=== PATIENT | male | born 1955 | race African-American/Black ===

== ENCOUNTER 2016-10-07 13:30 | Inpatient (IN) | payer BC, MEDICAID ==
[~2016-10-07] VITALS: Ht 185.4 cm; Wt 93.1 kg
[~2016-10-07 13:30] MED LIST: ARIP10TA10; ATOM25CA3; ATOR20TA17; BENA10TA48; BUPR-34; FENO145T25; LISI-313; METF500T4; METO-53; TERB250T46
[2016-10-07] MEDS ORDERED: ONDANSETRON 4 MG INJ IV STA (14:12)
[2016-10-07] MEDS ORDERED: SOD CHLORIDE 0.9% 1,000 ML IV STA (14:12)
[2016-10-07] MEDS ORDERED: NALOXONE (0.4 MG/ML) INJ IV ONE (14:30)
[2016-10-07 14:32] LABS: BASOPHILS % 0.3 % (0.0-2.0); EOSINOPHILS # 0.1 10^3/ul (0.0-0.5); EOSINOPHILS % 0.9 % (0.0-7.0); HEMATOCRIT 40.1 % (42.0-52.0); HEMOGLOBIN 13.7 g/dl (14.0-18.0); LYMPHOCYTES # 1.1 10^3/ul (0.8-2.9); LYMPHOCYTES % 8.9 % (15.0-51.0); MEAN CORPUSCULAR HEMOGLOBIN 29.7 pg (29.0-33.0); MEAN CORPUSCULAR HGB CONC 34.2 g/dl (32.0-37.0); MEAN PLATELET VOLUME 8.7 fl (7.4-10.4); MONOCYTE # 0.8 10^3/ul (0.3-0.9); MONOCYTES % 6.2 % (0.0-11.0); NEUTROPHILS % 83.1 % (39.0-77.0); PLATELET COUNT 169 10^3/UL (140-415); RED BLOOD COUNT 4.61 10^6/ul (4.70-6.10); WHITE BLOOD COUNT 12.1 10^3/ul (4.8-10.8)
--- NOTE | 2016-10-07 14:33 | ERD ---
ER Documentation Chief Complaint Date/Time DATE: 10/07/16 TIME: 14:30 Chief Complaint BROUGHT IN VIA EMS DUE TO SYNCOPAL EPISODE HPI 61-year-old man brought in by EMS for syncopal episode shortly after using ziprasidone for the first time. Patient denies any other medication or illicit drug ingestion. The episode was witnessed he had no seizure activity, no complaints of chest pain or shortness of breath, no vomiting, no loss of bowel or bladder control. Patient denies suicidal homicidal ideation. Patient was transported here with altered mental status without other further complications ROS All systems reviewed and are negative except as per history of present illness. Medications Home Meds Reported Medications Ziprasidone* (Geodon*) 40 Mg Capsule, 40 MG PO BID, CAP 10/07/16 Divalproex Sodium* (Divalproex Sodium*) 125 Mg Tablet.dr, 125 MG PO BID, #60 TAB 10/07/16 Discontinued Reported Medications Metformin Hcl* (Metformin Hcl*) 500 Mg Tablet 06/24/10 Atorvastatin (Lipitor) 20 Mg Tablet 06/24/10 Fenofibrate Nanocrystallized* (Tricor*) 145 Mg Tablet 06/24/10 Lisinopril* (Lisinopril*) 5 Mg Tablet 06/24/10 Benazepril Hcl* (Benazepril Hcl*) 10 Mg Tablet 06/24/10 Atomoxetine Hcl (Strattera) 25 Mg Capsule 06/24/10 Aripiprazole* (Abilify*) 10 Mg Tablet 06/24/10 Bupropion Hcl* (Wellbutrin SR*) 150 Mg Tablet.sa 06/24/10 Metoprolol (Lopressor) 50 Mg Tablet 06/24/10 Terbinafine* (Lamisil*) 250 Mg Tablet 06/24/10 Allergies Allergies: Coded Allergies: No Known Drug Allergy (Verified Allergy, Mild, 10/07/16) PMhx/Soc Hypertension, psychiatric illness History of Surgery: Yes (hernia surgery) Anesthesia Reaction: No Hx Neurological Disorder: No Hx Respiratory Disorders: No Hx Cardiac Disorders: Yes (HTN, ) Hx Psychiatric Problems: Yes (BIPOLAR) Hx Miscellaneous Medical Probl: No Hx Alcohol Use: Yes Hx Substance Use: Yes Hx Tobacco Use: Yes Smoking Status: Never smoker FmHx Family History: No diabetes Physical Exam Vitals Vital Signs Date Time Temp Pulse Resp B/P Pulse Ox O2 Delivery O2 Flow Rate FiO2 10/07/16 17:17 98.0 51 18 104/71 97 10/07/16 15:45 97.9 54 18 96/64 97 10/07/16 13:45 97.9 54 18 99/53 97 Physical Exam GENERAL: Altered, able to answer simple questions and follow simple commands, lethargic but arousable, afebrile HEENT: Dry mucous membranes, pink conjunctiva, no cervical spine tenderness or step-off deformities, no goiter, no jaundice or icterus, extraocular movements intact without pain. No submandibular induration, and no pharyngeal erythema NEURO: Alert and oriented 3, lethargic, able to answer questions and follow simple commands, no focal deficits or facial asymmetry CARDIAC: Bradycardic and regular, no murmurs rubs or gallops LUNGS: Clear bilaterally no wheezing crackles or stridor ABDOMEN: Soft nontender, no guarding, no rigidity, no rebound, no psoas sign no obturator sign. Normoactive bowel sounds SKIN: Warm and dry to touch, no abrasions, contusions, or hematomas, no lacerations, no ecchymosis, no target lesions, and without ulcers EXTREMITIES: No clubbing cyanosis or edema, calves are bilaterally symmetrical, no Homans sign, no popliteal cord sign. Distal pulses equal and bilateral PSYCH: Normal affect without agitation or irritability Result Diagram: 10/07/16 1420 10/07/16 1420 Results 24 hrs Laboratory Tests Test 10/07/16 14:20 White Blood Count 12.110^3/ul Red Blood Count 4.6110^6/ul Hemoglobin 13.7g/dl Hematocrit 40.1% Mean Corpuscular Volume 87.0fl Mean Corpuscular Hemoglobin 29.7pg Mean Corpuscular Hemoglobin Concent 34.2g/dl Red Cell Distribution Width 13.0% Platelet Count 03220^3/UL Mean Platelet Volume 8.7fl Neutrophils % 83.1% Lymphocytes % 8.9% Monocytes % 6.2% Eosinophils % 0.9% Basophils % 0.3% Nucleated Red Blood Cells % 0.0/100WBC Neutrophils # 10.010^3/ul Lymphocytes # 1.110^3/ul Monocytes # 0.810^3/ul Eosinophils # 0.110^3/ul Basophils # 0.010^3/ul Nucleated Red Blood Cells # 0.010^3/ul Sodium Level 146mmol/L Potassium Level 4.0mmol/L Chloride Level 108mmol/L Carbon Dioxide Level 26mmol/L Anion Gap 16 Blood Urea Nitrogen 18mg/dl Creatinine 1.22mg/dl Glucose Level 122mg/dl Calcium Level 8.6mg/dl Total Bilirubin 0.4mg/dl Direct Bilirubin 0.00mg/dl Indirect Bilirubin 0.4mg/dl Aspartate Amino Transf (AST/SGOT) 29IU/L Alanine Aminotransferase (ALT/SGPT) 46IU/L Alkaline Phosphatase 52IU/L Troponin I < 0.012ng/ml Total Protein 6.0g/dl Albumin 3.5g/dl Globulin 2.50g/dl Albumin/Globulin Ratio 1.40 Lipase 114U/L Current Medications Medications (Trade) Dose Ordered Sig/Lorena Route PRN Reason Start Time Stop Time Status Last Admin Dose Admin Naloxone HCl (Narcan) 2 mg ONCE ONCE IV 10/07/16 14:30 10/07/16 14:31 DC 10/07/16 15:07 Ondansetron HCl 4 mg 4 mg ONCE STAT IV 10/07/16 14:12 10/07/16 14:13 DC 10/07/16 15:07 Sodium Chloride 1,000 ml @ 1,000 mls/hr Q1H STAT IV 10/07/16 14:12 10/07/16 15:11 DC 10/07/16 15:07 Sodium Chloride (NS) 1,000 ml @ 125 mls/hr Q8H IV 10/07/16 17:21 IV Flush (NS 3 ml) 3 ml PER PROTOCOL IV 10/07/16 17:30 Pantoprazole (Protonix Tab) 40 mg DAILY@06 PO 10/08/16 06:00 [facility] IV line was established patient was placed on library manager and rhythm strip revealed a sinus bradycardia at 50 bpm with upright P and T waves. Patient was afebrile. EKG performed, read by me revealed a sinus bradycardia 55 bpm, normal axis, with a right ventricular conduction delay and a QRS duration of 100 ms, no concerning ST elevations or depressions noted. One AP view of the chest performed, read by me reveals no acute infiltrates, normal mediastinum, sharp costophrenic and cardiac borders, no air under the diaphragm. Otherwise unremarkable chest x-ray. I administered 1 L normal saline intravenously, Zofran 4 mg IV, and naloxone 2 mg IV. Patient's mental status did not change with naloxone intervention. CBC was unremarkable, electrolytes normal, liver function tests normal, troponin was negative. Patient is able to answer all questions, follow all commands, and move all his extremities without difficulty, he has no facial asymmetry, and vital signs remained normal although he remains lethargic. I suspect ziprasidone overdose and will admit the patient to telemetry setting. Patient denies benzodiazepine or opioid use. Ethanol level has also been ordered results are pending I will follow-up. Patient will be admitted to telemetry setting for syncopal episode. Departure Diagnosis: Primary Impression: Syncope Syncope type: unspecified Qualified Code: R55 - Syncope, unspecified syncope type Additional Impression: Accidental medication overdose Encounter type: initial encounter Qualified Code: T50.901A - Accidental medication overdose, initial encounter MARÍA HANLEY MD Oct 07, 2016 14:33
[2016-10-07 14:56] LABS: ANION GAP 16 (8-16)
[2016-10-07] MEDS ORDERED: DIVA125T2 PO (15:00)
[2016-10-07] MEDS ORDERED: ZIPR40CA2 PO (15:08)
[2016-10-07 15:15] LABS: ALANINE AMINOTRANSFERASE 46 IU/L (13-69); ALBUMIN 3.5 g/dl (3.3-4.9); ALKALINE PHOSPHATASE 52 IU/L (42-121); ASPARTATE AMINO TRANSFERASE 29 IU/L (15-46); BILIRUBIN,INDIRECT 0.4 mg/dl (0-1.1); BILIRUBIN,TOTAL 0.4 mg/dl (0.2-1.3); BLOOD UREA NITROGEN 18 mg/dl (7-20); CALCIUM 8.6 mg/dl (8.4-10.2); CARBON DIOXIDE 26 mmol/L (21-31); CHLORIDE 108 mmol/L (97-110); CREATININE 1.22 mg/dl (0.61-1.24); GLUCOSE 122 mg/dl (70-220); SODIUM 146 mmol/L (135-144)
--- NOTE | 2016-10-07 15:15 | RADRPT ---
PROCEDURE: XR Chest. CLINICAL INDICATION: Abdominal pain. TECHNIQUE: Single frontal chest x-ray. COMPARISON: Chest radiograph 06/21/2009. FINDINGS: The lungs volumes are diminished. There are compressive changes with vascular crowding and basilar atelectasis. No pneumothorax, pleural effusion or consolidation is noted. The cardiomediastinal si lhouette is unremarkable. No acute osseous abnormality is noted. IMPRESSION: 1. Low lung volumes with compressive changes and basilar atelectasis. 2. Otherwise, no acute cardiopulmonary abnormality. RPTAT: HH .Sue Cervantes MD, Date Time Electronically viewed and signed by .Sue Cervantes MD, on 10/07/2016 15:15 .N/
[2016-10-07 16:06] LABS: TROPONIN-I < 0.012 ng/ml (0.00-0.12)
[2016-10-07 17:17] VITALS: TEMP 98
[2016-10-07] MEDS: SOD CHLORIDE 0.9% 1,000 ML IV SCH (17:21)
[2016-10-07] MEDS ORDERED: NACL 0.9% 3 ML SYG IV SCH (17:30)
--- NOTE | 2016-10-07 17:46 | HP ---
Date/Time of Note Date/Time of Note DATE: 10/07/16 TIME: 17:39 Assessment/Plan VTE Prophylaxis VTE Prophylaxis Intervention: SCD's Lines/Catheters IV Catheter Type (from Nrs): Peripheral IV Assessment/Plan Chief Complaint/Hosp Course Patient is a 61-year-old -[place] male who presents to [facility] for syncopal episode and altered mental status after taking 1 Geodon. Assessment Altered mental status Ziprasidone side effect Bradycardia Syncope Diabetes Hypertension Atrial fibrillation Bipolar disease Dyslipidemia Plan -Although the cause is very likely a reaction to patient's Geodon, cannot exclude other causes of syncope and altered mental status. Will order EEG and CT of the head to rule out neurologic cause. Echocardiogram will be ordered given patient's history of atrial fibrillation, troponins are negative, ABG, lactic acid, TSH will also be ordered -N.p.o. for now -Fluid resuscitation, patient's hypotension is likely secondary to side effects of Geodon, received 2 L in the ED, maintenance fluids after -Not atypical overdose as patient only took the recommended amount of 1 pill, however we will symptomatically manage as cautiously as possible for possible overdose symptoms. Patient has already improved significantly per nurse ED. -We will consider restarting other home meds as able David Fernandez DO Problems: HPI/ROS Admit Date/Time Admit Date/Time Hx of Present Illness Patient is a 61-year-old -[place] male with a past medical history significant for bipolar disease and multiple other comorbidities however only on one medication who presents to [facility] for syncopal episode. Upon arrival into the ED patient with a lethargic but after fluids patient is arousable easily however falls asleep very quickly. Patient is oriented 4 and can tell me exactly what happened throughout the day. Patient states that he had to change his bipolar medication to Geodon and this morning was his first dose. Patient did not overdose and took just 1 pill. Patient denies any other acute complaints at this time however states that he cannot keep his eyes open. Patient also states that although he was diagnosed with diabetes, hypertension, A. fib, dyslipidemia in the past, his other doctors took him off the medications. PMH: Bipolar, diabetes type 2, hypertension, atrial fibrillation, dyslipidemia PSH: Questionable hernia surgery Social: Positive smoker, denies drinking or drugs Meds: Only Geodon, recently taken off Abilify and Wellbutrin PMH/Family/Social Social History Smoking Status: Never smoker Exam/Review of Systems Vital Signs Vitals Vital Signs Date Time Temp Pulse Resp B/P Pulse Ox O2 Delivery O2 Flow Rate FiO2 10/07/16 17:17 98.0 51 18 104/71 97 Exam Exam Physical exam General: Patient is laying in bed and answers questions appropriately, however very sleepy Mentation: Patient is alert(when prompted) and oriented 4, Head: Normocephalic atraumatic Eyes: EOMI, pupils sluggish Neck: Supple, nontender, midline Respiratory: Clear to auscultation bilaterally Cardiovascular:bradycardia, no obvious murmurs Gastrointestinal: non-tender to palpation, bowel sounds heard. Neurological: Moves all extremities spontaneously Skin: No new skin lesions Labs Result Diagram: 10/07/16 1420 10/07/16 1420 Medications Medications Current Medications Sodium Chloride (NS) 1,000 ml @ 125 mls/hr Q8H IV ; Start 10/07/16 at 17:21 Pantoprazole (Protonix Tab) 40 mg DAILY@06 PO ; Start 10/08/16 at 06:00 DAVID FERNANDEZ Oct 07, 2016 17:46
--- NOTE | 2016-10-07 18:05 | RADRPT ---
PROCEDURE: CT Brain without. CLINICAL INDICATION: Altered mental status. TECHNIQUE: A CT of the brain was performed on multidetector high-resolution CT scanner utilizing a xial sections from the skull base through the vertex without contrast. The scan was reviewed in sof t tissue brain and high frequency resolution bone algorithm windows. Images were reviewed on a high -resolution PACS workstation. One or more the following does reduction techniques were utilized: Aut omated exposure control, adjustment of the mA/ or kV according to patient's size, or use of iterativ e reconstruction technique. The exam CTDI = 43.20 mGy and the DLP = 886.38 mGy-cm. COMPARISON: None available. FINDINGS: The ventricles and sulci are age-appropriate. There is no intracranial hemorrhage, mass effect or m idline shift. No abnormal intra-axial or extra-axial fluid collections are seen. The márquez/white mat ter differentiation is preserved. There are minimal scattered foci of hypoattenuation in the white matter, which are nonspecific in et iology but likely reflect chronic small vessel ischemic changes. The visualized paranasal sinuses ar e essentially clear. IMPRESSION: 1. No acute intracranial hemorrhage, transcortical infarction or mass effect. 2. Minimal presumed chronic small vessel ischemic changes. RPTAT: HH .Sue Cervantes MD, Date Time Electronically viewed and signed by .Sue Cervantes MD, MD on 10/07/2016 18:05 .N/
[2016-10-07] MEDS: PANTOPRAZOLE 40 MG INJ IV SCH (18:35)
[2016-10-07 18:38] LABS: AADO2 Arterial 23.7 mmHg (7.0-24.0); Allen Test ACCEPTAB; Arterial Base Excess -2.1 mmol/L (-3.0-3); Arterial COHb 1.3 % (0.0-3.0); Arterial Fraction of Oxyhgb 94.2 % (93.0-99.0); Arterial HCO3 22.2 mmol/L (22.0-26.0); Arterial MetHb 0.4 % (0.0-1.5); Arterial Total Hemglobin 15.1 g/dl (12.0-18.0); MODE ROOM AIR
[2016-10-07 19:24] LABS: SALICYLATE < 1.0 mg/dl (5.0-30.0)
[2016-10-07 20:45] VITALS: PULSE 56
[2016-10-07 20:55] VITALS: BP 149/60; RESP 18
[2016-10-07 21:54] VITALS: Ht 185.4 cm; Wt 93.1 kg
[2016-10-08] VITALS (12 sets, daily range): BP systolic 109–131; BP diastolic 66–71; PULSE 49–90; RESP 16–20
[2016-10-08] MEDS: SOD CHLORIDE 0.9% 1,000 ML IV SCH ×2 (00:09→07:59)
[2016-10-08] MEDS ORDERED: PANTOPRAZOLE (EC) 40 MG TAB PO SCH (06:00)
[2016-10-08] MEDS: PANTOPRAZOLE 40 MG INJ IV SCH (06:19)
[2016-10-08 07:30] LABS: BASOPHILS % 0.3 % (0.0-2.0); EOSINOPHILS # 0.2 10^3/ul (0.0-0.5); EOSINOPHILS % 2.8 % (0.0-7.0); HEMATOCRIT 38.9 % (42.0-52.0); HEMOGLOBIN 13.1 g/dl (14.0-18.0); LYMPHOCYTES # 1.9 10^3/ul (0.8-2.9); LYMPHOCYTES % 27.4 % (15.0-51.0); MEAN CORPUSCULAR HEMOGLOBIN 29.4 pg (29.0-33.0); MEAN CORPUSCULAR HGB CONC 33.7 g/dl (32.0-37.0); MEAN CORPUSCULAR VOLUME 87.4 fl (82.0-101.0); MEAN PLATELET VOLUME 9.3 fl (7.4-10.4); MONOCYTE # 0.5 10^3/ul (0.3-0.9); MONOCYTES % 7.5 % (0.0-11.0); NEUTROPHIL # 4.2 10^3/ul (1.6-7.5); NEUTROPHILS % 61.9 % (39.0-77.0); PLATELET COUNT 178 10^3/UL (140-415); RED BLOOD COUNT 4.45 10^6/ul (4.70-6.10); RED CELL DISTRIBUTION WIDTH 13.1 % (11.5-14.5); WHITE BLOOD COUNT 6.8 10^3/ul (4.8-10.8)
[2016-10-08 07:47] LABS: CALCIUM 8.3 mg/dl (8.4-10.2); CREATININE 0.92 mg/dl (0.61-1.24); MAGNESIUM 1.8 mg/dl (1.7-2.5); PHOSPHORUS 3.5 mg/dl (2.5-4.9); POTASSIUM 4.1 mmol/L (3.5-5.1)
[2016-10-08 07:54] LABS: CHOL/HDL RATIO 4.7 RATIO
--- NOTE | 2016-10-08 09:07 | QN ---
Documentation Comment Notified by nursing at 0730 patient had an erection since 3AM. called dr. grecia lundy's office at [phone] for stat consult for erection/priapism. No call back at at 0900. Call made again to office and cell phone of Dr. Lundy, wrong cell phone number. Phone call to warehouse assistant and nursing locomotive supervisor made at 0900, regarding concern. Awaiting call back after they make calls. MARÍA FERNANDEZ Oct 08, 2016 09:07
--- NOTE | 2016-10-08 13:38 | PN ---
Date/Time of Note Date/Time of Note DATE: 10/08/16 TIME: 13:35 Assessment/Plan VTE Prophylaxis VTE Prophylaxis Intervention: SCD's Lines/Catheters IV Catheter Type (from [facility]): Peripheral IV Urinary Cath still in place: No Assessment/Plan Chief Complaint/Hosp Course Patient is a 61-year-old -Swedish male who presents to [facility] for syncopal episode and altered mental status after taking 1 Geodon. Assessment Altered mental status, resolved Ziprasidone side effect Bradycardia, asymptomatic Syncope Diabetes Hypertension Atrial fibrillation Bipolar disease Dyslipidemia Plan -Patient back to normal mentation -Urology consulted, priapism has resolved, however will still see patient as priapism can return at any time. Patient has a history of priapism -Cardiology consulted for bradycardia -Primary diagnoses still side effect of Geodon, however will do full workup -Neurology consulted for EEG read and altered mental status David Fernandez DO Problems: Subjective 24 Hr Interval Summary Free Text/Dictation had priapism for 5 hours today, urology called, but spontaneously resolved Exam/Review of Systems Vital Signs Vitals Vital Signs Date Time Temp Pulse Resp B/P Pulse Ox O2 Delivery O2 Flow Rate FiO2 10/08/16 12:08 53 10/08/16 12:06 97.4 18 115/69 100 Intake and Output 10/07/16 10/07/16 10/08/16 15:00 23:00 07:00 Intake Total 1150 ml Output Total 700 ml Balance 450 ml Exam Physical exam General: Patient is laying in bed and answers questions appropriately Mentation: Patient is alert and oriented 4, Head: Normocephalic atraumatic Eyes: EOMI, pupils reactive to light Neck: Supple, nontender, midline Respiratory: Clear to auscultation bilaterally Cardiovascular: regular rate, no obvious murmurs Gastrointestinal: non-tender to palpation, bowel sounds heard. Neurological: Moves all extremities spontaneously Skin: No new skin lesions Results Result Diagram: 10/08/1661810/08/16618 Results 24 hrs Laboratory Tests Test 10/07/16 14:20 10/07/16 18:00 10/07/16 18:25 10/08/16 06:19 White Blood Count 12.1 H 6.8 # Red Blood Count 4.61 L 4.45 L Hemoglobin 13.7 L 13.1 L Hematocrit 40.1 L 38.9 L Mean Corpuscular Volume 87.0 87.4 Mean Corpuscular Hemoglobin 29.7 29.4 Mean Corpuscular Hemoglobin Concent 34.2 33.7 Red Cell Distribution Width 13.0 13.1 Platelet Count 169 178 Mean Platelet Volume 8.7 9.3 Neutrophils % 83.1 H 61.9 Lymphocytes % 8.9 L 27.4 Monocytes % 6.2 7.5 Eosinophils % 0.9 2.8 Basophils % 0.3 0.3 Nucleated Red Blood Cells % 0.0 0.0 Neutrophils # 10.0 H 4.2 Lymphocytes # 1.1 1.9 Monocytes # 0.8 0.5 Eosinophils # 0.1 0.2 Basophils # 0.0 0.0 Nucleated Red Blood Cells # 0.0 0.0 Sodium Level 146 H 146 H Potassium Level 4.0 4.1 Chloride Level 108 111 H Carbon Dioxide Level 26 23 Anion Gap 16 16 Blood Urea Nitrogen 18 16 Creatinine 1.22 0.92 Glucose Level 122 77 # Calcium Level 8.6 8.3 L Total Bilirubin 0.4 Direct Bilirubin 0.00 Indirect Bilirubin 0.4 Aspartate Amino Transf (AST/SGOT) 29 Alanine Aminotransferase (ALT/SGPT) 46 Alkaline Phosphatase 52 Troponin I < 0.012 Total Protein 6.0 L Albumin 3.5 Globulin 2.50 Albumin/Globulin Ratio 1.40 Lipase 114 Blood Gas Specimen Source Blood arterial Arterial Blood Date Drawn 10/07/2016 6:30:41 PM Arterial Blood pH (Temp corrected) 7.398 Arterial Blood pCO2 (Temp correct) 36.9 Arterial Blood pO2 (Temp corrected) 81.8 Arterial Blood HCO3 22.2 Arterial Blood Base Excess -2.1 Arterial Blood Oxygen Saturation 95.8 Bruno Test ACCEPTAB Arterial Blood Gas Puncture Site Right Radial Arterial Blood Carboxyhemoglobin 1.3 Arterial Blood Methemoglobin 0.4 Blood Gas A-a O2 Differential 23.7 Oxyhemoglobin Percent 94.2 Total Hemoglobin 15.1 Blood Gas Temperature 37.0 Blood Gas Modality ROOM AIR FiO2 21.0 Blood Gas Notified Whom M.Rosana Blood Gas Notified Time 10/07/2016 6:38:25 PM Hemoglobin A1c 5.5 Lactic Acid Level 1.3 Thyroid Stimulating Hormone (TSH) 1.610 Salicylates Level < 1.0 L Acetaminophen Level < 10.0 L Ethyl Alcohol Level < 10.0 Phosphorus Level 3.5 Magnesium Level 1.8 Triglycerides Level 68 Cholesterol Level 139 LDL Cholesterol, Calculated 96 HDL Cholesterol 29 L Cholesterol/HDL Ratio 4.7 Medications Medications Current Medications Pantoprazole (Protonix Iv) 40 mg DAILY@06 IV Last administered on 10/08/16t 06: 19; Admin Dose 40 MG; Start 10/07/16 at 18:00 DAVID FERNANDEZ Oct 08, 2016 13:38
--- NOTE | 2016-10-08 13:53 | CONS ---
Date/Time of Note Date/Time of Note DATE: 10/08/16 TIME: 13:48 Assessment/Plan Assessment/Plan Chief Complaint/Hosp Course Priapism very likely a result of Geodon. This drug has previously been identified as being associated with priapism as have other psychiatric medications. The erection lasted about 6 hours and then resolve spontaneously consistent with the form ago kinetics of that drug. Patient is keenly aware of the risks of priapism as this is occurred before and is aware that a prolonged priapism can be permanently damaging. While I cannot give him psychiatric recommendations think that his chance of getting further priapism with additional doses of Geodon are very likely and or hazardous. Whatever psychiatric medication he is going to be on he is going to have a risk of priapism. For this reason I like to instruct him on intracavernosal injections of phenylephrine. This can be done in my office and it helped to make arrangements for that. Also he should be screened for sickle cell He can be discharged from a urologic perspective Problems: Consultation Date/Type/Reason Admit Date/Time Date of Consultation: Oct 08, 2016 Type of Consultation: Urology Reason for Consultation Priapism Hx of Present Illness Gentleman has had a erection since 3:30 AM. I received a phone call from Dr. Mart at 9:05 AM and spoke to him promptly. I spoke to the nurse thereafter who told me that the erection has resolved. Patient took his first dose of Geodon yesterday. In the middle the night he woke up with a erection. This is occurred once before while he was taking another psychiatric medication. That was treated by corporal lavage at [facility]. Patient presently has no pain and is feeling fine He denies history of sickle cell disease Denies history of PDE 5 inhibitors. Denies history of trazodone use at this time Denies other urologic history other than the above Social History Smoking Status: Current every day smoker Exam/Review of Systems Vital Signs Vitals Vital Signs Date Time Temp Pulse Resp B/P Pulse Ox O2 Delivery O2 Flow Rate FiO2 10/08/16 12:08 53 10/08/16 12:06 97.4 18 115/69 100 Intake and Output 10/07/16 10/07/16 10/08/16 15:00 23:00 07:00 Intake Total 1150 ml Output Total 700 ml Balance 450 ml Exam Constitutional: alert, oriented Psych: no complaints Head: normocephalic Respiratory: normal air movement Gastrointestinal: soft Genitourinary - Male: nl penis, nl scrotum Results Result Diagram: 10/08/1619 10/08/16 0619 Results 24 hrs Laboratory Tests Test 10/07/16 14:20 10/07/16 18:00 10/07/16 18:25 10/08/16 06:19 White Blood Count 12.1 H 6.8 # Red Blood Count 4.61 L 4.45 L Hemoglobin 13.7 L 13.1 L Hematocrit 40.1 L 38.9 L Mean Corpuscular Volume 87.0 87.4 Mean Corpuscular Hemoglobin 29.7 29.4 Mean Corpuscular Hemoglobin Concent 34.2 33.7 Red Cell Distribution Width 13.0 13.1 Platelet Count 169 178 Mean Platelet Volume 8.7 9.3 Neutrophils % 83.1 H 61.9 Lymphocytes % 8.9 L 27.4 Monocytes % 6.2 7.5 Eosinophils % 0.9 2.8 Basophils % 0.3 0.3 Nucleated Red Blood Cells % 0.0 0.0 Neutrophils # 10.0 H 4.2 Lymphocytes # 1.1 1.9 Monocytes # 0.8 0.5 Eosinophils # 0.1 0.2 Basophils # 0.0 0.0 Nucleated Red Blood Cells # 0.0 0.0 Sodium Level 146 H 146 H Potassium Level 4.0 4.1 Chloride Level 108 111 H Carbon Dioxide Level 26 23 Anion Gap 16 16 Blood Urea Nitrogen 18 16 Creatinine 1.22 0.92 Glucose Level 122 77 # Calcium Level 8.6 8.3 L Total Bilirubin 0.4 Direct Bilirubin 0.00 Indirect Bilirubin 0.4 Aspartate Amino Transf (AST/SGOT) 29 Alanine Aminotransferase (ALT/SGPT) 46 Alkaline Phosphatase 52 Troponin I < 0.012 Total Protein 6.0 L Albumin 3.5 Globulin 2.50 Albumin/Globulin Ratio 1.40 Lipase 114 Blood Gas Specimen Source Blood arterial Arterial Blood Date Drawn 10/07/2016 6:30:41 PM Arterial Blood pH (Temp corrected) 7.398 Arterial Blood pCO2 (Temp correct) 36.9 Arterial Blood pO2 (Temp corrected) 81.8 Arterial Blood HCO3 22.2 Arterial Blood Base Excess -2.1 Arterial Blood Oxygen Saturation 95.8 Bruno Test ACCEPTAB Arterial Blood Gas Puncture Site Right Radial Arterial Blood Carboxyhemoglobin 1.3 Arterial Blood Methemoglobin 0.4 Blood Gas A-a O2 Differential 23.7 Oxyhemoglobin Percent 94.2 Total Hemoglobin 15.1 Blood Gas Temperature 37.0 Blood Gas Modality ROOM AIR FiO2 21.0 Blood Gas Notified Whom Wyatt Blood Gas Notified Time 10/07/2016 6:38:25 PM Hemoglobin A1c 5.5 Lactic Acid Level 1.3 Thyroid Stimulating Hormone (TSH) 1.610 Salicylates Level < 1.0 L Acetaminophen Level < 10.0 L Ethyl Alcohol Level < 10.0 Phosphorus Level 3.5 Magnesium Level 1.8 Triglycerides Level 68 Cholesterol Level 139 LDL Cholesterol, Calculated 96 HDL Cholesterol 29 L Cholesterol/HDL Ratio 4.7 Medications Medications Current Medications Pantoprazole (Protonix Iv) 40 mg DAILY@06 IV Last administered on 10/08/16t 06: 19; Admin Dose 40 MG; Start 10/07/16 at 18:00 CHRIS PERKINS MD Oct 08, 2016 13:53
[2016-10-08] MEDS ORDERED: NICOTINE (21 MG/24 HR) PATCH TRANSDERM SCH (16:00)
--- NOTE | 2016-10-08 17:29 | CONS ---
Date/Time of Note Date/Time of Note DATE: 10/08/16 TIME: 17:24 Assessment/Plan Assessment/Plan Chief Complaint/Hosp Course 61 year old male with reported hx of HTN, HLD, DM, Afib, Bipolar d/o admitted after syncopal event after taking first dose of Geodon. Will recommend MRI Brain w/o contrast, EEG completed cardiology work up in progress will follow up again tomorrow Problems: Consultation Date/Type/Reason Admit Date/Time 10/08/16 Date of Consultation: Oct 08, 2016 Type of Consultation: Neurology Reason for Consultation evaluation for syncope Referring Provider: MARÍA FERNANDEZ Hx of Present Illness 61 year old AA male with history of DM, HTN, afib reported not on meds, bipolar disorder admitted after syncopal event. Per HPI he recently switched bipolar meds to Geodon, Monday morning was reportedly his first dose. Per history obtained from patient he states he was driving after taking the dose and felt as if the road was blurring and lines in the road were crossing felt spaced out and had slurred speech, he denies LOC. He admits to similar sx in the past when he first started taking Abilify. He is being evaluated by cardiology for bradycardia and syncope work up as well. Head CT is unremarkable. No seizure activity was described, an EEG was done. Psychological: no complaints Past Medical History as per HPI Social History Smoking Status: Current every day smoker Exam/Review of Systems Vital Signs Vitals Vital Signs Date Time Temp Pulse Resp B/P Pulse Ox O2 Delivery O2 Flow Rate FiO2 10/08/16 16:15 85 10/08/16 15:55 98.4 18 109/69 100 Intake and Output 10/07/16 10/07/16 10/08/16 15:00 23:00 07:00 Intake Total 1150 ml Output Total 700 ml Balance 450 ml Exam Constitutional: alert, oriented, well developed Neurological: ROUSTABOUT CREW II-XII intact, DTR's symmetric, nl mental status, nl speech, nl strength Results Result Diagram: 10/08/1661810/08/1619 Results 24 hrs Laboratory Tests Test 10/07/16 18:00 10/07/16 18:25 10/08/16 06:19 Blood Gas Specimen Source Blood arterial Arterial Blood Date Drawn 10/07/2016 6:30:41 PM Arterial Blood pH (Temp corrected) 7.398 Arterial Blood pCO2 (Temp correct) 36.9 Arterial Blood pO2 (Temp corrected) 81.8 Arterial Blood HCO3 22.2 Arterial Blood Base Excess -2.1 Arterial Blood Oxygen Saturation 95.8 Bruno Test ACCEPTAB Arterial Blood Gas Puncture Site Right Radial Arterial Blood Carboxyhemoglobin 1.3 Arterial Blood Methemoglobin 0.4 Blood Gas A-a O2 Differential 23.7 Oxyhemoglobin Percent 94.2 Total Hemoglobin 15.1 Blood Gas Temperature 37.0 Blood Gas Modality ROOM AIR FiO2 21.0 Blood Gas Notified Whom Wyatt Blood Gas Notified Time 10/07/2016 6:38:25 PM Hemoglobin A1c 5.5 Lactic Acid Level 1.3 Thyroid Stimulating Hormone (TSH) 1.610 Salicylates Level < 1.0 L Acetaminophen Level < 10.0 L Ethyl Alcohol Level < 10.0 White Blood Count 6.8 # Red Blood Count 4.45 L Hemoglobin 13.1 L Hematocrit 38.9 L Mean Corpuscular Volume 87.4 Mean Corpuscular Hemoglobin 29.4 Mean Corpuscular Hemoglobin Concent 33.7 Red Cell Distribution Width 13.1 Platelet Count 178 Mean Platelet Volume 9.3 Neutrophils % 61.9 Lymphocytes % 27.4 Monocytes % 7.5 Eosinophils % 2.8 Basophils % 0.3 Nucleated Red Blood Cells % 0.0 Neutrophils # 4.2 Lymphocytes # 1.9 Monocytes # 0.5 Eosinophils # 0.2 Basophils # 0.0 Nucleated Red Blood Cells # 0.0 Sodium Level 146 H Potassium Level 4.1 Chloride Level 111 H Carbon Dioxide Level 23 Anion Gap 16 Blood Urea Nitrogen 16 Creatinine 0.92 Glucose Level 77 # Calcium Level 8.3 L Phosphorus Level 3.5 Magnesium Level 1.8 Triglycerides Level 68 Cholesterol Level 139 LDL Cholesterol, Calculated 96 HDL Cholesterol 29 L Cholesterol/HDL Ratio 4.7 Medications Medications Current Medications Pantoprazole (Protonix Iv) 40 mg DAILY@06 IV Last administered on 10/08/16 06: 19; Admin Dose 40 MG; Start 10/07/16 at 18:00 Nicotine (Nicoderm 21 Mg/ 24hr) 1 patch DAILY TRANSDERM Last administered on 16:49; Admin Dose 1 PATCH; Start 10/08/16 at 16:00 NADIA GONZALES MD Oct 08, 2016 17:28
[2016-10-09] VITALS: PULSE 61
[2016-10-09 00:12] VITALS: BP 122/85; RESP 20
[2016-10-09 04:19] VITALS: BP 106/56; RESP 20
[2016-10-09 04:24] VITALS: PULSE 56
--- NOTE | 2016-10-09 07:10 | DS ---
Date/Time of Note Date/Time of Note DATE: 10/09/16 TIME: 07:09 Discharge Summary Admission/Discharge Info Admit Date/Time Oct 07, 2016 at 15:57 Discharge Date/Time Oct 09, 2016 at 05:30 Hx of Present Illness Patient is a 61-year-old -[place] male with a past medical history significant for bipolar disease and multiple other comorbidities however only on one medication who presents to [facility] for syncopal episode. Upon arrival into the ED patient with a lethargic but after fluids patient is arousable easily however falls asleep very quickly. Patient is oriented 4 and can tell me exactly what happened throughout the day. Patient states that he had to change his bipolar medication to Geodon and this morning was his first dose. Patient did not overdose and took just 1 pill. Patient denies any other acute complaints at this time however states that he cannot keep his eyes open. Patient also states that although he was diagnosed with diabetes, hypertension, A. fib, dyslipidemia in the past, his other doctors took him off the medications. PMH: Bipolar, diabetes type 2, hypertension, atrial fibrillation, dyslipidemia PSH: Questionable hernia surgery Social: Positive smoker, denies drinking or drugs Meds: Only Geodon, recently taken off Abilify and Wellbutrin Hospital Course 61 year old male with reported hx of HTN, HLD, DM, Afib, Bipolar d/o admitted after syncopal event after taking first dose of Geodon. Patient left against medical advice overnight. Risks were explained by staff of leaving against medical advice including and debility. Patient accepts the risks and signed out AMA. Home Meds Reported Medications Ziprasidone* (Geodon*) 40 Mg Capsule, 40 MG PO BID, CAP 10/07/16 Divalproex Sodium* (Divalproex Sodium*) 125 Mg Tablet.dr, 125 MG PO BID, #60 TAB 10/07/16 Discontinued Reported Medications Metformin Hcl* (Metformin Hcl*) 500 Mg Tablet 06/24/10 Atorvastatin (Lipitor) 20 Mg Tablet 06/24/10 Fenofibrate Nanocrystallized* (Tricor*) 145 Mg Tablet 06/24/10 Lisinopril* (Lisinopril*) 5 Mg Tablet 06/24/10 Benazepril Hcl* (Benazepril Hcl*) 10 Mg Tablet 06/24/10 Atomoxetine Hcl (Strattera) 25 Mg Capsule 06/24/10 Aripiprazole* (Abilify*) 10 Mg Tablet 06/24/10 Bupropion Hcl* (Wellbutrin SR*) 150 Mg Tablet.sa 06/24/10 Metoprolol (Lopressor) 50 Mg Tablet 06/24/10 Terbinafine* (Lamisil*) 250 Mg Tablet 06/24/10 Primary Care Provider Arline Alvarez Pending Labs Laboratory Tests Test 10/08/16 17:34 10/09/16 01:19 Troponin I < 0.012ng/ml (0.00-0.12) < 0.012ng/ml (0.00-0.12) B-Type Natriuretic Peptide 68PG/ML (0-125) MARÍA FERNANDEZ Oct 09, 2016 07:10
--- NOTE | 2016-10-09 14:00 | RADRPT ---
Echocardiogram Report Patient Name: ARTEMIO NOVA Gender: Male Date: 1955 Study Date: 08-Oct-2016 Visual Merchandising Assistant: [facility] [place] Location: E Ref. Physician: MARÍA FERNANDEZ Quality: Adequate Procedures: Transthoracic echocardiogram with complete 2D, M-Mode, and Doppler examination. Indications: Syncope. 2D/M Mode Doppler Measurement Value Normal Ranges Measurement Value Normal Ranges AoR Diam MM 2.8 cm AV Peak Omer 1.6 m/sec ACS MM 2.0 cm AV Peak PG 9.7 mmHg LVIDd 2D 4.5 3.5 - 5.6 cm LVOT Peak Omer 1.1 m/sec LVIDs 2D 2.3 2.1 - 4.1 cm LVOT Peak PG 4.9 mmHg LVPWd 2D 1.1 0.6 - 1.1 cm MV E Peak Omer 1.3 m/sec IVSd 2D 1.2 0.6 - 1.1 cm MV A Peak Omer 0.6 m/sec EDV 2D 93.3 cm3 MV E/A 2.2 ESV 2D 12.2 cm3 MV Decel Time 177 msec LA Dimen 2D 3.6 2.3 - 4.0 cm MV Decel Hemphill 8 MV E/A 2.2 TR Peak Omer 2.3 m/sec TR Peak PG 21.3 mmHg PV Peak Omer 1.2 m/sec PV Peak PG 6.0 mmHg RVSP 24.3 mmHg Findings Left Ventricle: Normal left ventricular systolic function. Normal left ventricular cavity size. Mild hypertrophy of the basal septum. Ejection fraction is visually estimated at 65 %. Tissue Doppler/Mitral Doppler indices are within normal limits. E/E`=10. Right Ventricle: Normal right ventricular size. Normal right ventricular systolic function. Left Atrium: The left atrium is normal in size. Right Atrium: The right atrium is normal in size. Atrial Septum: Normal atrial septum. Mitral Valve: Normal appearance and function of the mitral valve with trace physiologic regurgitation. Aortic Valve: No significant aortic stenosis or insufficiency. Normal trileaflet aortic valve structure. Tricuspid Valve: Normal appearance of the tricuspid valve. Estimated peak PA systolic pressure 24 mmHg. There is trace tricuspid regurgitation. Pulmonic Valve: Normal pulmonic valve appearance. There is trace pulmonic regurgitation. Pericardium: Normal pericardium with no significant pericardial effusion. Aorta: Normal aortic root. IVC: Normal size and normal respiratory collapse consistent with normal right atrial pressure. Pulmonary Artery: Normal pulmonary artery size. Conclusions 1.Normal left ventricular systolic function. Normal left ventricular cavity size. Mild hypertrophy of the basal septum. Ejection fraction is visually estimated at 65 %. Tissue Doppler/Mitral Doppler indices are within normal limits. E/E`=10. 2.Normal right ventricular size. Normal right ventricular systolic function. 3.Normal appearance and function of the mitral valve with trace physiologic regurgitation. 4.No significant aortic stenosis or insufficiency. Normal trileaflet aortic valve structure. 5.Normal appearance of the tricuspid valve. Estimated peak PA systolic pressure 24 mmHg. There is trace tricuspid regurgitation. 6.Normal pericardium with no significant pericardial effusion. Electronically Signed By: Melo English 09-Oct-2016 13:59:34 -0700 Patient Name: ARTEMIO NOVA Study Date: 08-Oct-2016 [id number]
== END 2016-10-09 05:30 | disposition left against medical advice (07) | DRG 918 ==
LOC: E/R 13:30 → MS4 15:57
PROVIDERS: ADMIT Internal Medicine; ATTEND Internal Medicine
DX: T43.595A Adverse effect of other antipsychotics and neuroleptics, initial encounter (principal); I48.91 Unspecified atrial fibrillation; I10 Essential (primary) hypertension; R00.1 Bradycardia, unspecified; R55 Syncope and collapse; N48.33 Priapism, drug-induced; R41.82 Altered mental status, unspecified; E11.9 Type 2 diabetes mellitus without complications; E78.5 Hyperlipidemia, unspecified; F31.9 Bipolar disorder, unspecified; F17.200 Nicotine dependence, unspecified, uncomplicated; Z53.21 Procedure and treatment not carried out due to patient leaving prior to being seen by health care provider; Y92.9 Unspecified place or not applicable
CPT/HCPCS: 36600; 70450; 71010; 80048; 80053; 80061; 80306; 82803; 83036; 83605; 83690; 83735; 83880; 84100; 84443; 84484; 85025; 87040; 93005; 93306; 95819; 96374; 96375; C9113; J2310; J2405; J7030

== ENCOUNTER 2016-10-13 15:46 | Outpatient (CLI) | payer BC ==
[~2016-10-13] VITALS: Ht 185.4 cm; Wt 93.3 kg
[~2016-10-13 15:46] MED LIST changes: +DIVA125T2 PO; +ZIPR40CA2 PO
[2016-10-13 16:07] VITALS: Ht 185.4 cm; Wt 93.3 kg
[2016-10-13 16:08] VITALS: BP 126/66; PULSE 71; RESP 16
--- NOTE | 2016-10-13 16:32 | PN ---
Date/Time of Note Date/Time of Note DATE: 10/13/16 TIME: 16:28 Outpatient Progress Note Chief Complaint altered mental status/diabetes/hypertension/A. fib/depression/hyperlipidemia HPI Altered mental status/patient was recently hospitalized with altered mental status, patient at present awake alert, patient was taking psych medication, which was discontinued, Diabetes/no polydipsia polyuria, patient blood sugar was controlled, patient has lost significant weight, patient is not taking any medication at present, Hypertension/no headache or dizziness, no impaired vision, A. fib/no palpitations syncope, Depression/patient is depressed, patient was taking of medication, patient has side effect, patient will be seeing psychiatrist, Hyperlipidemia/no xanthoma, on medication, no side effect of medication, Review of Systems Const: No Fever, no chills, no Wt. loss, no Fatigue, normal appetite, no diaphoresis. Eyes: No pain, no discharge, no redness, no visual change, no foreign body. ENT: No pain, no bleeding, no congestion, no sore throat, no dysphagia, no discharge or rhinitis. Lymph: No adenopathy, no tender nodes, no lymphedema. Resp: No SOB, no cough, no sputum, no wheezing, no chest pain. CV: No chest pain, no palpitaions, no LEONG, no PND, no edema. GI: Normal appetite, no pain, no nausea, no vomiting, no diarrhea, no blood, no constipation. : No frequency, no urgency, no dysuria, no hematuria, no flank pain, no discharge, no bleeding. Musc: No back pain, no neck pain, no knee pain, no restricted ROM. Skin: No rash, no skin lesions, no erythema, no laceration, no bruising, no pruritus. Neuro: No SIM, no dizziness, no syncope, no seizure, no focal-weakness. Endo: No polyuria, no polydypsia, no dry-skin, no temp-intolerance. Psych: No hallucinations, no depression, no anxiety, no suicidal ideation. Ext: No edema, no pain, no ulcer, no weakness. Physical Exam Vital Signs Date Time Temp Pulse Resp B/P Pulse Ox O2 Delivery O2 Flow Rate FiO2 10/13/16 16:08 97.6 71 16 126/66 98 Room Air General Appearance: A 61 year-old delete male who appears well-developed, well- nourished, in no acute distress. HEENT: Head normocephalic, atraumatic. Pupils equal, round, reactive to light and accommodate. Sclerae are no jaundice. Nasal turbinates pink without erythema or nasal discharge. Mucous membranes pink and moist without lesions. Oropharynx clear without any exudate or discharge. NECK: Supple. Trachea midline, No thyromegaly, No cervical lymphadenopathy, No mass, No carotid bruits, No JVD, Carotid pulses 2+ bilaterally. PULMONARY: Clear to auscultaion bilaterally, No retractions, Chest expansion symmetric bilaterally, no rales, no ronchi, no dulness on percussion. CARDIAC: Normal SI and S2, iRegular rate and rythm, no murmur, gallop, or rub. GASTROINTESTINAL: Abdomen is soft, non-tender, Non Rigid, No distention, Positive bowel sounds x4 quadrants, Liver normal. SKIN: Warm, dry, no rash, no bruise, no echmosis. EXTREMITIES: Bilateral lower extremities normal, no edema, no phlabitus, pulse palpable, no contracture. MUSCULOSKELETAL: Spine Normal, Non-tender, Normal range of motion, No swelling, no deformity, no clubbing, or cyanosis, the patient has no edema to bilateral lower extremities, dorsalis pedis pulses palpable bilaterally. NEUROLOGIC: The patient is awake, alert, oriented, responding to yes/no questions appropriately, moving all extremities, cranial nerve intact, normal strenght, normal power, normal coordination, normal gait. Allergies Coded Allergies: No Known Drug Allergy (Verified Allergy, Mild, 10/07/16) PMH Altered mental status/bradycardia/syncope/diabetes/hypertension/A. fib/bipolar disease/hyperlipidemia Social Hx No smoking at present, no drinking, Family Hx Noncontributory Assessment/Plan Impression Altered mental status improved Diabetes/patient off medication, patient has lost significant weight, control Hypertension A. fib Depression Hyperlipidemia Plan Patient education done about all disease, Patient encouraged to follow with the primary care physician, Patient encouraged to follow with psychiatrist, Will apply and discuss with insurance, need to get psychiatrist, Patient has all the medication, except psych medication, will discuss with patient to go to psych and renew medication, Medications Home Meds Reported Medications Ziprasidone* (Geodon*) 40 Mg Capsule, 40 MG PO BID, CAP 10/07/16 Divalproex Sodium* (Divalproex Sodium*) 125 Mg Tablet.dr, 125 MG PO BID, #60 TAB 10/07/16 Discontinued Reported Medications Metformin Hcl* (Metformin Hcl*) 500 Mg Tablet 06/24/10 Atorvastatin (Lipitor) 20 Mg Tablet 06/24/10 Fenofibrate Nanocrystallized* (Tricor*) 145 Mg Tablet 06/24/10 Lisinopril* (Lisinopril*) 5 Mg Tablet 06/24/10 Benazepril Hcl* (Benazepril Hcl*) 10 Mg Tablet 06/24/10 Atomoxetine Hcl (Strattera) 25 Mg Capsule 06/24/10 Aripiprazole* (Abilify*) 10 Mg Tablet 06/24/10 Bupropion Hcl* (Wellbutrin SR*) 150 Mg Tablet.sa 06/24/10 Metoprolol (Lopressor) 50 Mg Tablet 06/24/10 Terbinafine* (Lamisil*) 250 Mg Tablet 06/24/10 JASPER CERVANTES MD Oct 13, 2016 16:32
== END 2016-10-13 17:02 | disposition home or self-care (01) ==
LOC: DCC 15:46
PROVIDERS: ATTEND Internal Medicine
DX: R41.82 Altered mental status, unspecified (principal); E11.9 Type 2 diabetes mellitus without complications; Z79.84 Long term (current) use of oral hypoglycemic drugs; I10 Essential (primary) hypertension; I48.91 Unspecified atrial fibrillation; F32.9 Major depressive disorder, single episode, unspecified; E78.5 Hyperlipidemia, unspecified

== ENCOUNTER 2016-10-27 11:24 | Outpatient (CLI) | payer BC ==
[~2016-10-27] VITALS: Ht 185.4 cm; Wt 94.8 kg
[~2016-10-27 11:24] MED LIST changes: -ARIP10TA10; -ATOM25CA3; -ATOR20TA17; -BENA10TA48; -BUPR-34; -FENO145T25; -LISI-313; -METF500T4; -METO-53; -TERB250T46
[2016-10-27 11:29] VITALS: BP 126/68; PULSE 77; RESP 16; Ht 185.4 cm; Wt 94.8 kg
--- NOTE | 2016-10-27 12:15 | PN ---
Date/Time of Note Date/Time of Note DATE: 10/27/16 TIME: 12:12 Outpatient Progress Note Chief Complaint Depression/diabetes/A. fib/hypertension HPI Depression/patient has history of depression, patient is a mental health care worker, patient was feeling sleepy with Depakote, so it was discontinued, and patient was started on ziprasidone and patient had side effect, patient has not been taking any medication, Diabetes/no polydipsia polyuria hypoglycemia, blood sugar under fairly controlled per patient, A. fib/no palpitations syncope, Hypertension/no headache or dizziness, Review of Systems Const: No Fever, no chills, no Wt. loss, no Fatigue, normal appetite, no diaphoresis. Eyes: No pain, no discharge, no redness, no visual change, no foreign body. ENT: No pain, no bleeding, no congestion, no sore throat, no dysphagia, no discharge or rhinitis. Lymph: No adenopathy, no tender nodes, no lymphedema. Resp: No SOB, no cough, no sputum, no wheezing, no chest pain. CV: No chest pain, no palpitaions, no LEONG, no PND, no edema. GI: Normal appetite, no pain, no nausea, no vomiting, no diarrhea, no blood, no constipation. : No frequency, no urgency, no dysuria, no hematuria, no flank pain, no discharge, no bleeding. Musc: no back pain, no neck pain, no knee pain, no restricted ROM. Skin: No rash, no skin lesions, no erythema, no laceration, no bruising, no pruritus. Neuro: No SIM, no dizziness, no syncope, no seizure, no focal-weakness. Endo: No polyuria, no polydypsia, no dry-skin, no temp-intolerance. Psych: No hallucinations, has a history of depression and patient sometimes does not want to do anything no suicidal idea,, no anxiety, patient has not taken any medication, and patient was referred to psychiatrist, Ext: No edema, no pain, no ulcer, no weakness. Physical Exam Vital Signs Date Time Temp Pulse Resp B/P Pulse Ox O2 Delivery O2 Flow Rate FiO2 10/27/16 11:29 98.2 77 16 126/68 99 Room Air General Appearance: A 61 year-old male who appears well-developed, well- nourished, in no acute distress. HEENT: Head normocephalic, atraumatic. Pupils equal, round, reactive to light and accommodate. Sclerae are no jaundice. Nasal turbinates pink without erythema or nasal discharge. Mucous membranes pink and moist without lesions. Oropharynx clear without any exudate or discharge. NECK: Supple. Trachea midline, No thyromegaly, No cervical lymphadenopathy, No mass, No carotid bruits, No JVD, Carotid pulses 2+ bilaterally. PULMONARY: Clear to auscultaion bilaterally, No retractions, Chest expansion symmetric bilaterally, no rales, no ronchi, no dulness on percussion. CARDIAC: Normal SI and S2, Regular rate and rythm, no murmur, gallop, or rub. GASTROINTESTINAL: Abdomen is soft, non-tender, Non Rigid, No distention, Positive bowel sounds x4 quadrants, Liver normal. SKIN: Warm, dry, no rash, no bruise, no echmosis. EXTREMITIES: Bilateral lower extremities normal, no edema, no phlabitus, pulse palpable, no contracture. MUSCULOSKELETAL: Spine Normal, Non-tender, Normal range of motion, No swelling, no deformity, no clubbing, or cyanosis, the patient has no edema to bilateral lower extremities, dorsalis pedis pulses palpable bilaterally. NEUROLOGIC: The patient is awake, alert, oriented, responding to yes/no questions appropriately, moving all extremities, cranial nerve intact, normal strenght, normal power, normal coordination, normal gait. Allergies Coded Allergies: No Known Drug Allergy (Verified Allergy, Mild, 10/07/16) PMH No change Social Hx No change Family Hx No change Assessment/Plan Impression Depression/diabetes/A. fib/hypertension Plan Patient education done, patient advised to follow with a psychiatrist, we have called to get authorization, locally Patient encouraged to follow with the primary care physician, Control the blood pressure control the blood pressure, at present his heart rate is normal, and regular, will monitor closely, Medications Home Meds Reported Medications Ziprasidone* (Geodon*) 40 Mg Capsule, 40 MG PO BID, CAP 10/07/16 Divalproex Sodium* (Divalproex Sodium*) 125 Mg Tablet., 125 MG PO BID, #60 TAB 10/07/16 JASPER CERVANTES MD Oct 27, 2016 12:15
== END 2016-10-27 17:00 | disposition home or self-care (01) ==
LOC: DCC 11:24
PROVIDERS: ATTEND Internal Medicine
DX: E11.9 Type 2 diabetes mellitus without complications (principal); I48.91 Unspecified atrial fibrillation; I10 Essential (primary) hypertension; F32.9 Major depressive disorder, single episode, unspecified

== ENCOUNTER 2016-11-29 03:27 | Emergency (ER) | payer BC ==
[~2016-11-29] VITALS: Ht 185.4 cm; Wt 95.0 kg
[2016-11-29 03:32] VITALS: Ht 185.4 cm; Wt 95.0 kg
[2016-11-29 03:35] VITALS: BP 120/71; PULSE 81; RESP 18; TEMP 98.1
[2016-11-29 04:34] LABS: BASOPHIL # 0.1 10^3/ul (0.0-0.1); BASOPHILS % 0.6 % (0.0-2.0); EOSINOPHILS # 0.5 10^3/ul (0.0-0.5); EOSINOPHILS % 5.9 % (0.0-7.0); HEMATOCRIT 42.1 % (42.0-52.0); HEMOGLOBIN 14.1 g/dl (14.0-18.0); LYMPHOCYTES % 25.5 % (15.0-51.0); MEAN CORPUSCULAR HEMOGLOBIN 29.1 pg (29.0-33.0); MEAN CORPUSCULAR HGB CONC 33.5 g/dl (32.0-37.0); MEAN PLATELET VOLUME 8.7 fl (7.4-10.4); MONOCYTE # 0.6 10^3/ul (0.3-0.9); MONOCYTES % 8.2 % (0.0-11.0); NEUTROPHILS % 59.4 % (39.0-77.0); PLATELET COUNT 175 10^3/UL (140-415); RED BLOOD COUNT 4.84 10^6/ul (4.70-6.10); RED CELL DISTRIBUTION WIDTH 13.2 % (11.5-14.5); WHITE BLOOD COUNT 7.8 10^3/ul (4.8-10.8)
[2016-11-29 04:45] LABS: ALANINE AMINOTRANSFERASE 36 IU/L (13-69); ALBUMIN 3.6 g/dl (3.3-4.9); ALBUMIN/GLOBULIN RATIO 1.38; ALKALINE PHOSPHATASE 62 IU/L (42-121); ANION GAP 9 (8-16); ASPARTATE AMINO TRANSFERASE 27 IU/L (15-46); BILIRUBIN,INDIRECT 0.2 mg/dl (0-1.1); BILIRUBIN,TOTAL 0.2 mg/dl (0.2-1.3); BLOOD UREA NITROGEN 15 mg/dl (7-20); CALCIUM 8.8 mg/dl (8.4-10.2); CARBON DIOXIDE 25 mmol/L (21-31); CHLORIDE 109 mmol/L (97-110); CREATININE 0.96 mg/dl (0.61-1.24); GLUCOSE 106 mg/dl (70-220); POTASSIUM 3.9 mmol/L (3.5-5.1); SODIUM 139 mmol/L (135-144); TOTAL PROTEIN 6.2 g/dl (6.1-8.1)
[2016-11-29 04:46] LABS: ETHANOL < 10.0 mg/dl
--- NOTE | 2016-11-29 05:12 | ERA ---
ER Documentation Chief Complaint Date/Time DATE: 11/29/16 TIME: 05:11 Chief Complaint TANESHA BUTT from home,woke up paranoid per pt verbatim,hx psych HPI This is a 11-year-old male brought in by mom will go paranoid. He feels like he is going to be killed. Patient has history of previous psychiatric disease and hospitalization. No homicidal ideation. No suicidal ideation. No other current complaints. ROS All systems reviewed and are negative except as per history of present illness. Medications Home Meds Reported Medications Divalproex Sodium* (Divalproex Sodium*) 125 Mg Tablet.dr, 125 MG PO BID, #60 TAB 10/07/16 Discontinued Reported Medications Ziprasidone* (Geodon*) 40 Mg Capsule, 40 MG PO BID, CAP 10/07/16 Allergies Allergies: Coded Allergies: No Known Drug Allergy (Unverified Allergy, Mild, 11/29/16) PMhx/Soc History of Surgery: Yes (Hernia surgery) Anesthesia Reaction: No Hx Neurological Disorder: No Hx Respiratory Disorders: No Hx Cardiac Disorders: Yes (HTN) Hx Psychiatric Problems: Yes (Bipolar no meds for one year ) Hx Miscellaneous Medical Probl: Yes (Smoker) Hx Alcohol Use: Yes Hx Substance Use: Yes Hx Tobacco Use: No Smoking Status: Current every day smoker Physical Exam Vitals Vital Signs Date Time Temp Pulse Resp B/P Pulse Ox O2 Delivery O2 Flow Rate FiO2 11/29/16 03:35 98.1 81 18 120/71 98 Room Air 11/29/16 03:32 98.2 76 18 120/71 97 Physical Exam Const: [] Head: Atraumatic Eyes: Normal Conjunctiva ENT: Normal External Ears, Nose and Mouth. Neck: Full range of motion..~ No meningismus. Resp: Clear to auscultation bilaterally Cardio: Regular rate and rhythm, no murmurs Abd: Soft, non tender, non distended. Normal bowel sounds Skin: No petechiae or rashes Back: No midline or flank tenderness Ext: No cyanosis, or edema Neur: Awake and alert Psych: Normal Mood and Affect Result Diagram: 11/29/1640711/29/168 Results 24 hrs Laboratory Tests Test 11/29/16 04:08 White Blood Count 7.810^3/ul Red Blood Count 4.8410^6/ul Hemoglobin 14.1g/dl Hematocrit 42.1% Mean Corpuscular Volume 87.0fl Mean Corpuscular Hemoglobin 29.1pg Mean Corpuscular Hemoglobin Concent 33.5g/dl Red Cell Distribution Width 13.2% Platelet Count 65434^3/UL Mean Platelet Volume 8.7fl Neutrophils % 59.4% Lymphocytes % 25.5% Monocytes % 8.2% Eosinophils % 5.9% Basophils % 0.6% Nucleated Red Blood Cells % 0.0/100WBC Neutrophils # (Manual) 4.610^3/ul Lymphocytes # 2.010^3/ul Monocytes # 0.610^3/ul Eosinophils # 0.510^3/ul Basophils # 0.110^3/ul Nucleated Red Blood Cells # 0.010^3/ul Sodium Level 139mmol/L Potassium Level 3.9mmol/L Chloride Level 109mmol/L Carbon Dioxide Level 25mmol/L Anion Gap 9 Blood Urea Nitrogen 15mg/dl Creatinine 0.96mg/dl Glucose Level 106mg/dl Calcium Level 8.8mg/dl Total Bilirubin 0.2mg/dl Direct Bilirubin 0.00mg/dl Indirect Bilirubin 0.2mg/dl Aspartate Amino Transf (AST/SGOT) 27IU/L Alanine Aminotransferase (ALT/SGPT) 36IU/L Alkaline Phosphatase 62IU/L Total Protein 6.2g/dl Albumin 3.6g/dl Globulin 2.60g/dl Albumin/Globulin Ratio 1.38 Ethyl Alcohol Level < 10.0mg/dl Procedures/MDM Patient's behavioral symptoms have stabilized while in the department. Patient is medically cleared and appropriate for psychiatric evaluation and work up. No e/o neurologic, toxic, infectious, or metabolic cause. Departure Diagnosis: Primary Impression: Psychological disorder Condition: Serious CORINA MENARuben Nov 29, 2016 05:12
--- NOTE | 2016-11-29 08:13 | PSY ---
Date/Time of Note Date/Time of Note DATE: 11/29/16 TIME: 08:09 Psychiatric Subjective Eval Consent Pt consented to telemedicine: Yes Subjective Evaluation Patient location: emergency Chief Complaint: TANESHA RARommel from home,woke up paranoid per pt verbatim,hx psych History of present illness 61 yo disabled male BIB EMS because he woke up paranoid; pt says he stopped depakote 3 weeks ago because his MD told him he can't drive on it. Pt was only on 125 mg BID. Pt is anxious, he felt someone is going to kil him. He denies though any si or hi, denies ah or vh; he says he is not paranoid any longer and not depressed. Past psychiatric history last inpt was a few years ago Hospitalization: yes Family History denies Medical history Problems Medical Problems: (1) Accidental medication overdose Status: Acute (2) Psychological disorder Status: Acute (3) Syncope Status: Acute Allergies: Coded Allergies: No Known Drug Allergy (Unverified Allergy, Mild, 11/29/16) Substance Abuse Substance use: No known substance abuse Social History Marital status: single Level of education: some college DPA/Conservatorship: No Occupation/Long Term: on [employer] Psychiatric Objective Eval Mental Status Examination: Appearance: Groomed Eye Contact: Good Psychomotor Activity: Normal Behavior: Cooperative Speech: Clear AFFECT: Appropriate Mood: Appropriate/Full Thought Content: Normal Suicidal: No Homicidal: No On 72 hour hold: No Orientation: x4 Cognition: Alert Insight: Mild Judgement: Mild Laboratory Results Laboratory Tests Test 11/29/16 04:08 White Blood Count 7.810^3/ul Red Blood Count 4.8410^6/ul Hemoglobin 14.1g/dl Hematocrit 42.1% Mean Corpuscular Volume 87.0fl Mean Corpuscular Hemoglobin 29.1pg Mean Corpuscular Hemoglobin Concent 33.5g/dl Red Cell Distribution Width 13.2% Platelet Count 18715^3/UL Mean Platelet Volume 8.7fl Neutrophils % 59.4% Lymphocytes % 25.5% Monocytes % 8.2% Eosinophils % 5.9% Basophils % 0.6% Nucleated Red Blood Cells % 0.0/100WBC Neutrophils # (Manual) 4.610^3/ul Lymphocytes # 2.010^3/ul Monocytes # 0.610^3/ul Eosinophils # 0.510^3/ul Basophils # 0.110^3/ul Nucleated Red Blood Cells # 0.010^3/ul Sodium Level 139mmol/L Potassium Level 3.9mmol/L Chloride Level 109mmol/L Carbon Dioxide Level 25mmol/L Anion Gap 9 Blood Urea Nitrogen 15mg/dl Creatinine 0.96mg/dl Glucose Level 106mg/dl Calcium Level 8.8mg/dl Total Bilirubin 0.2mg/dl Direct Bilirubin 0.00mg/dl Indirect Bilirubin 0.2mg/dl Aspartate Amino Transf (AST/SGOT) 27IU/L Alanine Aminotransferase (ALT/SGPT) 36IU/L Alkaline Phosphatase 62IU/L Total Protein 6.2g/dl Albumin 3.6g/dl Globulin 2.60g/dl Albumin/Globulin Ratio 1.38 Ethyl Alcohol Level < 10.0mg/dl Assessment and Plan Assessment/Diagnosis [place] I: Bipolar disorder unspecified with psychosis [place] II: defered [place] IV: moderate [place] V: GAF 40 Recommendation/Plan Medication Management restart Depakote 250 mg poqhs; follo wup with pt's outpt psychiatrsit Psychotherapy defer to outpt Follow-up/Disposition pt can be discahrged - he does not meet 520 criteria - no dts, dto,gd. 5150 Recommendation: NAE TOUSSAINT MD Nov 29, 2016 08:13
[2016-11-29] MEDS ORDERED: DIVA250T60 PO (08:28)
--- NOTE | 2016-11-29 08:29 | QN ---
Documentation Comment The patient had a psychiatry evaluation by Dr. Wisdom. She does not feel the patient requires a 5150 hold and can be managed with outpatient psychiatry. She has recommended Depakote 250 mg at night and I have ordered this for a 2 week course. The patient can return for any worsening symptoms. He can return for suicidal or homicidal ideation. CESAR ARCINIEGA MD Nov 29, 2016 08:28
== END 2016-11-29 09:27 | disposition home or self-care (01) ==
LOC: E/R 03:27
DX: F99 Mental disorder, not otherwise specified (principal); I10 Essential (primary) hypertension; F17.210 Nicotine dependence, cigarettes, uncomplicated
CPT/HCPCS: 80053; 80306; 85025; 99284